=== PATIENT | female | born 1970 | race Caucasian/White ===

== ENCOUNTER 2024-02-05 10:15 | Outpatient (CLI) | payer OTHER, MEDICAID | END 2024-02-05 10:16 | disposition home or self-care (01) | LOC: BICMAMMO 10:15 | PROVIDERS: ATTEND Family Medicine | DX: Z12.31 Encounter for screening mammogram for malignant neoplasm of breast (principal) | CPT/HCPCS: 77063; 77067 ==

== ENCOUNTER 2024-03-17 21:14 | Emergency (ER) | payer OTHER, MEDICAID ==
[2024-03-17 21:46] LABS: #Basophils 0.08 10x3/uL (0.0-0.2); %Basophils 0.8 % (0.0-1.0); %Eosinophils 2.1 % (0.0-10.0); %Lymphocytes 29.3 % (21.0-51.0); %Monocytes 7.2 % (0.0-10.0); %Neutrophils 60.3 % (42.0-75.0); Hematocrit 38.6 % (36.0-47.0); Hemoglobin 11.8 g/dL (12.0-16.0); Mean Corpuscular HGB CONC 30.6 g/dL (32.0-36.0); Mean Corpuscular Hemoglobin 24.6 pg (27.0-31.0); Mean Corpuscular Volume 80.4 fL (78.0-98.0); Mean Platelet Volume 9.5 fL (7.4-10.4); Platelet Count 386 10x3/uL (130-400); RBC Distribution Width 16.5 % (11.5-14.5)
[2024-03-17 22:08] LABS: ALT (SGPT) 22 U/L (8-55); AST (SGOT) 20 U/L (5-34); Albumin 3.8 g/dL (3.5-5.0); Alkaline Phosphatase 123 U/L (40-110); Anion Gap 14 mmol/L (10-20); BUN (Urea Nitrogen) 13 mg/dL (9.8-20.1); Bilirubin, Total 0.4 mg/dL (0.2-1.2); Calc. Creatinine Clearance 0 mL/min (70-130); Calcium 9.6 mg/dL (7.8-10.44); Carbon Dioxide 24 mmol/L (22-29); Chloride 105 mmol/L (98-107); Estimated GFR 90; Globulin 3.6 g/dL (2.4-3.5); Glucose 146 mg/dL (70-105); Potassium 3.3 mmol/L (3.5-5.1); Protein, Total 7.4 g/dL (6.0-8.3); Sodium 140 mmol/L (136-145)
== END 2024-03-17 23:40 | disposition home or self-care (01) ==
LOC: ERS 21:14
DX: S91.302A Unspecified open wound, left foot, initial encounter (principal); I10 Essential (primary) hypertension; X58.XXXA Exposure to other specified factors, initial encounter
CPT/HCPCS: 36415; 80053; 83605; 84145; 85025

== ENCOUNTER 2024-09-17 09:06 | Outpatient (CLI) | payer OTHER | END 2024-09-17 09:07 | disposition home or self-care (01) | LOC: BICULT 09:06 | PROVIDERS: ATTEND Nurse Practitioner Primary Care | DX: I82.402 Acute embolism and thrombosis of unspecified deep veins of left lower extremity (principal) ==